=== PATIENT | male | born 1960 | race Caucasian/White ===

== ENCOUNTER 2023-12-29 12:34 | Emergency (ER) | payer OTHER ==
--- NOTE | 2023-12-29 12:50 | ED Physician Documentation ---
PD HPI UPPER EXT INJURY - Stated complaint Stated Complaint: RT HAND INJURY - Chief complaint Chief Complaint: Trauma Ext - Additonal information Additional information: 63-year-old male with no pertinent past medical history presents emergency department for right pinky right hand pain. Patient says that he was playing basketball it somehow got jammed originally He says that the MIP joint seem to be dislocated and his friend pulled on it and felt a popping sensation. Patient has now bruising to the palmar aspect of his hand and limited range of motion to the right pinky with significant pain and tenderness. PD PAST MEDICAL HISTORY - Past Medical History Past Medical History: No Cardiovascular: None Respiratory: None Neuro: None Endocrine/Autoimmune: None GI: None : None HEENT: None Psych: None Musculoskeletal: None Derm: None - Past Surgical History Past Surgical History: Yes Ortho: Other - Present Medications Home Medications: Ambulatory Orders Medication Instructions Recorded Confirmed No Known Home Medications 12/29/23 12/29/23 - Allergies Allergies/Adverse Reactions: Allergies Allergy/AdvReac Type Severity Reaction Status Date / Time No Known Drug Allergies Allergy Verified 12/29/23 12:39 - Social History Does the pt smoke?: No Smoking Status: Never smoker Does the pt drink ETOH?: Yes Does the pt have substance abuse?: No - Immunizations Immunizations are current?: Yes - POLST Patient has POLST: No PD ED PE NORMAL - Vitals Vital signs reviewed: Yes - General General: Alert and oriented X 3, No acute distress, Well developed/nourished - Free text exam Free text exam: Right hand: Mild bruising noted to the palmar aspect of patient's right hand. Unable to flex or extend patient's right pinky right pinky angled away from the hand. Swelling to the MIP and DIP. CMS intact PD ED PE EXPANDED - Extremities Extremities: Other Results - Vitals Vitals: Vital Signs - 24 hr 12/29/23 12/29/23 12:39 14:37 Temperature 36.5 C Heart Rate 60 54 L Respiratory 16 16 Rate Blood Pressure 140/77 H 129/86 H O2 Saturation 98 100 Oxygen O2 Source Room air PD Medical Decision Making - ED course ED course: X-rays completed of patient's right pinky finger and it reveals subluxation seen at the proximal interphalangeal joint of the fifth finger without dislocation or fracture. He is placed in helen tape and finger splint he is told to follow-up with his primary care provider or hand specialist as patient is a doctor and well-established with other doctors in [place] he said that he feels like he will be able to find a hand surgeon to follow-up with. Tylenol ibuprofen given to the patient here in the emergency department for pain told how to manage finger at home all questions answered safe for discharge. Departure - Departure Disposition: 01 Home, Self Care Clinical Impression: Injury of right little finger, Dislocation of right little finger, Contusion Instructions: ED Contusion Finger, ED Dislocation Finger Redu Comments: Thank you for trusting us with your care. You can follow-up with a hand specialist for further evaluation of your right pinky injury. We have placed in helen tape for now as well as a splint keep this on for the next week to help with recovery and apply ice 20 minutes at a time 1 hour off and alternate between Tylenol and ibuprofen for pain and discomfort keep elevated above your heart to help with swelling. Forms: PCP List Discharge Date/Time: 12/29/23 14:50
[2023-12-29] MEDS: NAPROXEN 250 MG TABLET PO STA (12:57)
[2023-12-29] MEDS: ACETAMINOPHEN 325 MG TABLET PO STA (12:58)
--- NOTE | 2023-12-29 14:16 | XRAY Report ---
PROCEDURE: Finger(s) RT INDICATIONS: Right 5th digit pain TECHNIQUE: AP hand, 2 views of the with finger(s) acquired. COMPARISON: None. FINDINGS: Bones: No displaced fracture is identified. There is subluxation seen of the proximal interphalangeal joint of the fifth finger, without overt di slocation. Soft tissues: No suspicious soft tissue calcifications or masses. IMPRESSION: Subluxation seen of the proximal interphalangeal joint of the fifth finger, yet without a julio dislo cation or fracture. Please consider an underlying soft tissue injury. Reviewed by: Travis Basilio MD on 12/29/2023 1:15 PM [facility] Approved by: Travis Basilio MD on 12/29/2023 1:15 PM [facility] Station ID: [id number]
[2023-12-29 14:40] VITALS: BP 129/86; O2SAT 100
== END 2023-12-29 14:50 | disposition home or self-care (01) ==
LOC: EDSEX → ED 12:34
DX: S63.286A Dislocation of proximal interphalangeal joint of right little finger, initial encounter (principal); S60.051A Contusion of right little finger without damage to nail, initial encounter; W21.05XA Struck by basketball, initial encounter; Y93.67 Activity, basketball
CPT/HCPCS: 73140; 99283; A9270